=== PATIENT | female | born 1990 | race Caucasian/White ===

== ENCOUNTER 2018-05-09 08:59 | Day surgery (SDC) | payer OTHER ==
[2018-05-08 09:26] VITALS: BMI 28.1
[~2018-05-09 08:59] MED LIST: Dexamethasone 20 MG/5 ML VIAL ONE; Ketorolac Tromethamine 30 MG/ML VIAL ONE; Lidocaine 1% PF 5 ML VIAL ONE; Ondansetron PF 4 MG/2 ML Vial ONE; PROPOFOL 200 MG/20 ML VIAL ONE; ePHEDrine/0.9% NaCl/PF SYRINGE 50 mg/10 ml ONE
[2018-05-09] MEDS ORDERED: CEFAZOLIN 2 GM/50 ML BAG ONE (09:20)
[2018-05-09] MEDS ORDERED: Bupivacaine PF 0.5% 30 ML VIAL ONE (10:57)
[2018-05-09] MEDS ORDERED: Fentanyl 100 MCG/2 ML VIAL ONE (11:45)
--- NOTE | 2018-05-09 20:07 | OP ---
DATE OF PROCEDURE: 05/09/2018 PREOPERATIVE DIAGNOSIS: Right cubital tunnel. POSTOPERATIVE DIAGNOSIS: Right cubital tunnel. PROCEDURE PERFORMED: 1. Right open cubital tunnel release and ulnar nerve transposition. 2. Placement of long arm splint, right upper extremity. INSURANCE CODER: None. BLOOD LOSS: Minimal. COMPLICATIONS: None. ANESTHESIA: She had general anesthetic. There was no block. No implants. She went to recovery room in stable condition. INDICATIONS FOR PROCEDURE: This is a 27-year-old active female, who has been having long-term problems for years, numbness, tingling, and weakness. EMG/NCV showed significant ulnar nerve compression at the elbow. At this time, she opted to have surgical release. DESCRIPTION OF PROCEDURE: After all appropriate consent forms were explained and signed, Claudia was taken back to the operating room, and at this time, she was given general anesthetic. Once level of anesthesia was appropriate, tourniquet was placed as far up on the right arm as possible and the right upper extremity was prepped and draped in standard surgical fashion. The limb was then exsanguinated, tourniquet taken up to 250 mmHg. Using loupe magnification, a 10 blade was used to incise down through skin. Bipolar cautery was then used to coagulate any brisk venous bleeding. At this time, scissor dissection was then used to free up the ulnar nerve from mid brachium all the way down to the first motor branch. Once this was done, a moist Ray-Gladis sponge was placed into the wound and the tourniquet was let down. Any brisk venous bleeding was coagulated, and at this time, the ulnar nerve was placed out of the way and multiple Vicryl sutures were used to close our cubital tunnel. 2-0 Vicryl and nylon sutures were then used to close the skin. A bulky sterile soft tissue dressing was then applied as well as a long-arm splint to the right upper extremity. The patient then had a sling applied. She was awakened, taken to recovery room in stable condition. All counts were correct at the end of the case. She did receive preoperative IV antibiotics. Job ID: [id number]
== END 2018-05-09 15:00 | disposition home or self-care (01) ==
LOC: SDC 08:59
PROVIDERS: ATTEND Orthopaedic Surgery
PROC: 01N40ZZ Release Ulnar Nerve, Open Approach (ICD-10-PCS; principal; 2018-05-09)
DX: G56.21 Lesion of ulnar nerve, right upper limb (principal); Z98.890 Other specified postprocedural states; Z91.013 Allergy to seafood
CPT/HCPCS: J1100; J1885; J2001; J2405; J2704; J3010; S0020